=== PATIENT | male | born 1955 | race Caucasian/White ===

== ENCOUNTER 2024-10-12 14:30 | Inpatient (IN) | payer MEDICARE, MEDICAID ==
[~2024-10-12] VITALS: Ht 177.8 cm; Wt 61.4 kg
[2024-10-12 15:01] LABS: CALCIUM, TOTAL 8.9 mg/dL (8.8-10.5); CREATININE 1.09 mg/dL (0.60-1.30); GLOMERULAR FILTR. RATE CALC > 60 mL/min (>60); GLUCOSE,RANDOM 107 mg/dL (70-110); PLATELET COUNT (AUTO) 315 K/uL (150-450); RED BLOOD CELL COUNT(AUTO) 4.69 MIL/uL (4.50-5.90); RED CELL DISTRIBUTION WIDTH 13.9 % (11.5-14.5); SODIUM SERUM 139 mmol/L (136-145); UREA NITROGEN, BLOOD 17 mg/dL (7-18); WHITE BLOOD COUNT (AUTO) 8.4 K/uL (4.5-11.0)
[2024-10-12 15:27] LABS: COVID AG,FIA SOURCE NASAL SWAB
[2024-10-12 15:39] LABS: APPEARANCE,URINE TURBID (CLEAR); GLUCOSE, URINE (UA) NEGATIVE (NEGATIVE); LEUKOCYTE ESTERASE ,URINE LARGE (NEGATIVE); NITRATE,URINE NEGATIVE (NEGATIVE); OCCULT BLOOD,URINE MODERATE (NEGATIVE); PH,URINE DRUG SCREEN 7.0 (5.0-8.0); SPECIFIC GRAVITIY, URINE 1.021 (1.003-1.030)
[2024-10-12 15:45] LABS: ALCOHOL, URINE DRUG SCREEN NEGATIVE (NEGATIVE); AMPHET/METH SCREEN,URINE NEGATIVE (NEGATIVE); BARBITURATE SCREEN, URINE NEGATIVE (NEGATIVE); CANNABINOID SCREEN,URINE NEGATIVE (NEGATIVE); COCAINE SCREEN,URINE NEGATIVE (NEGATIVE); METHADONE SCREEN, URINE NEGATIVE (NEGATIVE)
[2024-10-12] MEDS: MORPHINE SULFATE 2 MG/ML SYRINGE IVP ONE (15:48)
[2024-10-12 15:50] LABS: SULFOSALICYLIC ACID,URINE 3+ (Negative)
[2024-10-12 15:54] LABS: SQUAMOUS EPITHELIAL CELL,UR Rare /LPF (None Seen)
[2024-10-12 16:02] LABS: SARS-COV2 (COVID) ANTIGEN,FIA Negative (Negative)
[2024-10-12] MEDS ORDERED: ACETAMINOPHEN 325 MG TABLET PO PRN (16:15)
[2024-10-12] MEDS ORDERED: BISACODYL 10 MG RECTAL RECTAL SUPPOSITORY PR PRN (16:15)
[2024-10-12] MEDS ORDERED: ONDANSETRON HCL 4 MG/2 ML VIAL IVP PRN (16:15)
[2024-10-12] MEDS ORDERED: MAGNESIUM HYDROXIDE SUSPENSION 30 ML UDCUP PO PRN (16:15)
[2024-10-12] MEDS: CefTRIAXone 1 GM/DEXTROSE 50 ML IV ONE (16:15)
[2024-10-12] MEDS: OxyCODONE HCL/ACETAMINOPHEN 5-325 MG TABLET PO PRN (16:26)
[2024-10-12] MEDS: DOCUSATE SODIUM 100 MG CAPSULE PO SCH (20:16)
[2024-10-12 21:45] VITALS: BP 128/75; PULSE 75; RESP 18; TEMP 97.5; O2SAT 95
[2024-10-13] MEDS: HEPARIN SODIUM,PORCINE 5,000 UNITS/ML VIAL SQ SCH (00:19)
[2024-10-13 04:26] VITALS: BP 123/80; PULSE 70; RESP 19; TEMP 97.3; O2SAT 97
[2024-10-13 08:39] VITALS: BP 101/63; PULSE 66; RESP 19; TEMP 98.2; O2SAT 98
[2024-10-13] MEDS: FAMOTIDINE 20 MG TABLET PO SCH (08:47)
[2024-10-13 15:41] VITALS: BP 118/66; PULSE 76; RESP 18; TEMP 98; O2SAT 98
[2024-10-13] MEDS: CefTRIAXone 1 GM/DEXTROSE 50 ML IV SCH (17:16)
[2024-10-13] MEDS ORDERED: SODIUM CHLORIDE 0.9% 250 ML IV ONE (17:19)
[2024-10-13] MEDS: ZOLPIDEM TARTRATE 5 MG TABLET PO PRN (23:24)
[2024-10-14 03:16] VITALS: BP 110/65; PULSE 85; RESP 18; TEMP 97.8; O2SAT 97
[2024-10-14] MEDS: OxyCODONE HCL/ACETAMINOPHEN 5-325 MG TABLET PO PRN (12:11)
[2024-10-14 20:00] VITALS: BP 123/71; PULSE 70; RESP 20; TEMP 98.2; O2SAT 96
[2024-10-15] MEDS: OxyCODONE HCL/ACETAMINOPHEN 5-325 MG TABLET PO PRN (01:12)
[2024-10-15 02:18] VITALS: BP 109/67; PULSE 76; RESP 18; TEMP 97.9; O2SAT 93
[2024-10-15 08:00] VITALS: BP 105/76; PULSE 76; RESP 20; TEMP 97.9; O2SAT 96
[2024-10-15] MEDS: ETHYL ALCOHOL 62% ANTISEPTIC NASAL SANITIZER 0.6 ML AMPUL NASAL SCH (08:17)
[2024-10-15 15:51] VITALS: BP 102/64; PULSE 63; RESP 19; TEMP 97.5; O2SAT 96
== END 2024-10-15 19:33 | DRG 698 ==
LOC: EMS 14:42 → EDH 16:05 → 6S 21:59
PROVIDERS: ADMIT Internal Medicine; ATTEND Internal Medicine
DX: T83.511A Infection and inflammatory reaction due to indwelling urethral catheter, initial encounter (principal); R53.2 Functional quadriplegia; I48.91 Unspecified atrial fibrillation; F32.A Depression, unspecified; G89.29 Other chronic pain; Z20.822 Contact with and (suspected) exposure to COVID-19; Y84.6 Urinary catheterization as the cause of abnormal reaction of the patient, or of later complication, without mention of misadventure at the time of the procedure; Y92.89 Other specified places as the place of occurrence of the external cause
CPT/HCPCS: 80048; 80307; 81001; 81002; 85025; 87077; 87081; 87086; 87186; 87481; 96374; 97110; 97116; 97162; 97530; 99285; G0480; J0696; J1644; J2270; J7050